=== PATIENT | male | born 1955 | race Caucasian/White ===

== ENCOUNTER 2017-10-29 07:41 | Observation (INO) ==
[2017-10-29] MEDS ORDERED: SALINE FLUSH 10ml SYRINGE IVF PRN (07:59)
[2017-10-29] MEDS ORDERED: ASPIRIN 81 MG CHEWABLE TABLET PO ONE (07:59)
--- OUTSIDE RECORDS SUMMARY | 2017-10-29 08:01 | External Medical Summary ---
:1955 Author Organization [facility] Address [address] [place] [address] Care Team Providers Name Role Phone Margarette Brown Unavailable Unavailable PROBLEMS Type Condition ICD9-CM Code [id number] Onset Condition SNOMED Code Code Dates Status Assessment Acute upper J06.9 May, Active 777587272 respiratory 2016 infection, unspecified Assessment Other viral B97.89 May, Active [id number] agents as the 2016 cause of diseases classified elsewhere ALLERGIES Substance Reaction Event Type Date Status Sulfa Unknown Non Drug Allergy May, Active SOCIAL HISTORY No smoking Hx information available PLAN OF CARE VITAL SIGNS Weight 198.6 lbs 2016-06-10 Height 69.25 in 2016-06-10 Temperature 98.7 degrees Fahrenheit 2016-06-10 BMI 29.11 kg/m2 2016-06-10 Heart Rate 77 /min 2016-06-10 Oximetry 97 % 2016-06-10 Blood pressure systolic 138 mm Hg 2016-06-10 Blood pressure diastolic 80 mm Hg 2016-06-10 MEDICATIONS Medication Instructions Dosage Frequency Start Date End Date Duration Status Ibuprofen Active Vitamin C 1000 Orally Once a day 1 tablet 24h Active MG RESULTS No Results PROCEDURES Procedure Date Ordered Related Diagnosis Body Site OFFICE VISIT, AGRONOMY SPECIALIST-LOW COMPLEXITY (30 MIN.) Jun 10, 2016 IMMUNIZATIONS No Known Immunizations
--- NOTE | 2017-10-29 08:04 | Emergency Department Report ---
Chest Pain HPI - General Chief Complaint: Chest Pain Stated Complaint: Chest discomfort, high bp Time Seen by Provider: 10/29/17 07:54 Source: patient, RN notes reviewed, old records reviewed Mode of arrival: ambulatory Limitations: no limitations - History of Present Illness HPI narrative: 62yo man presents to the ER this AM for evaluation of chest pressure. Pts sx began appx 1.25 hours ago, while at work. This was accompanied by an elevation in BP. Pt took an 81mg ASA at work; he refused the offered EMS transport to the ER. His CP was intermittent; after enduring for appx 1 hour, he decided to present for evaluation. Shortly before arriving in the ER, pts sx resolved spontaneously. Pt is now CP free. He has never had anything like this before. Has no prior cardiac hx. MD complaint: chest pain Occurred At: work Onset (ago): hour(s) Duration: intermittent, now resolved Onset: during exertion Pain location: substernal Severity: moderate Severity scale (1-10): 6 Quality: heaviness (Pressure) Pain radiation: none Relieving factors: nothing Exacerbating factors: exertion Aspirin Today: 81 mg x 1, 81 mg x 3, provided by ED, provided at home Treatments prior to arrival chest pain: aspirin - Related Data Home Medications Medication Instructions Recorded Confirmed No known Home medications [No home 10/29/17 10/29/17 meds] Allergies Allergy/AdvReac Type Severity Reaction Status Date / Time Sulfa (Sulfonamide AdvReac Unknown STOMACH Verified 10/29/17 07:47 Antibiotics) UPSET Review of Systems All systems: reviewed and negative except as stated Cardiovascular: Reports: as per HPI, chest pain. Denies: palpitations, dyspnea on exertion, orthopnea, edema, syncope, paroxysmal nocturnal dyspnea [facility] Patient Stated Medical History Other HEENT Yes: wears glasses Hypertension Yes Bronchitis Yes Other Respiratory Yes: seasonal allergies Medical History Updates: HTN. LBP - Social History Smoking status: Former smoker Physical Exam - Limitations Limitations: no limitations - General General appearance: alert, in no apparent distress, obese - Normal Exams: Head:: Normocephalic without trauma Eyes:: Pupils are PERRLA w/ EOMI, No scleral icterus, irritation, or foreign bodies noted ENMT:: No facial trauma, nasal exudates, pharyngeal erythema, or exudates are noted Neck:: Full range of motion, without adenopathy Lymphatic:: No lymphadenopathy Musculoskeletal:: No tenderness, or deformity noted Integumentary:: No rashes, hives, or bruising noted Neurological:: Patient is alert, and oriented Psychiatric:: Patient exhibits, appropriate attention - Chest Chest inspection: Present: normal inspection, symmetric chest wall rise. Absent : tenderness, rash - Respiratory Respiratory exam: Present: normal lung sounds bilaterally. Absent: respiratory distress, wheezes, stridor, prolonged expiratory phase, crackles - Cardiovascular Cardiovascular exam: Present: regular rate, normal rhythm, normal heart sounds. Absent: rubs, gallop, clicks - Abdominal Exam Abdominal exam: Present: soft, normal bowel sounds. Absent: distention, tenderness, guarding, rebound, rigidity Course - Consultations Consultation #1: Hospitalist: Dr. Suresh has agreed to admit pt obs for CP r/o. Time: 08:51 Vital Signs Temperature 98.3 F 10/29/17 07:47 Pulse Rate 63 10/29/17 07:47 Respiratory Rate 20 10/29/17 07:47 Blood Pressure 179/91 H 10/29/17 07:47 Pulse Oximetry 94 10/29/17 07:47 Temperature 98.3 F 10/29/17 07:47 Pulse Rate 54 L 10/29/17 09:15 Respiratory Rate 19 10/29/17 09:15 Blood Pressure 157/92 H 10/29/17 09:15 Pulse Oximetry 94 10/29/17 09:15 Chest Pain - MDM Narrative Medical decision making narrative: CBC - n BMP - mild dehydration Trop - n BNP - n 62yo man with no prior cardiac hx, presenting 1 hour after abrupt onset of substernal chest pressure, relieved with rest and 81mg ASA. It is otherwise difficult to obtain hx from pt. Given h/o untreated HTN, former smoking status, and age, will contact hospitalist for CP r/o. - Differential Diagnosis Likely: fracture of rib, pneumothorax, stable angina, unstable angina pectoris, atypical chest pain, st elevation myocardial infarction, costochondritis, chest pain - Medical Records Data Attestation: I reviewed the patient's medical records. - Lab Data Attestation: I reviewed the patient's lab results. Result diagrams: 10/29/17 08:00 10/29/17 08:00 Lab Results 05/02/18 05/02/18 Range/Units 08:00 08:00 WBC 6.9 (4.5-11.0) T/MM3 RBC 4.80 (4.50-5.90) M/MM3 Hgb 14.9 (13.5-17.5) GM/DL Hct 45.5 (41-53) % MCV 94.8 (80-100) UM3 MCH 31.0 (26-34) UUG MCHC 32.7 (31-37) GM/DL RDW Std Deviation 45.5 (36.9-50.2) FL Plt Count 263 (130-400) T/MM3 MPV 10.2 (9.4-12.4) UM3 Immature Gran % (Auto) 0.1 (0.0-0.5) % Neut % (Auto) 58.0 (33-66) % Lymph % (Auto) 29.5 (23-45) % [place] % (Auto) 6.9 (0-9.0) % Eos % (Auto) 4.6 H (0-4) % Baso % (Auto) 0.9 (0-2) % Neut # (Auto) 4.0 (1.8-7.7) T/MM3 Lymph # (Auto) 2.1 (1-4.8) T/MM3 [place] # (Auto) 0.5 (0-0.8) T/MM3 Eos # (Auto) 0.3 (0-0.5) T/MM3 Baso # (Auto) 0.1 (0-0.2) T/MM3 Abs Immat Gran (auto) 0.01 (0.00-0.03) T/MM3 Turbidity < 20 (0-20) Sodium 148 H (134-144) MEQ/L Potassium 4.2 (3.6-5) MEQ/L Chloride 110 H (98-107) MEQ/L Carbon Dioxide 25 (22-30) MEQ/L Anion Gap 13 (5-15) meq/L BUN 16.0 (9-20) MG/DL Creatinine 0.8 (0.8-1.5) mg/dL GFR Calculation 99 BUN/Creatinine Ratio 20 (6-26) RATIO Glucose 96 (75-110) MG/DL Calculated Osmolality 285 H (261-280) MOSM/KG Calcium 9.6 (8.4-10.2) MG/DL Icterus Index < 2 (0-7) Troponin I < 0.012 (0-0.12) ng/ml NT-Pro-B Natriuret Pep 58.3 (0-175) pg/mL Specimen Hemolysis < 15 (0-25) - Radiology Data Attestation: I reviewed the patient's radiology results. CXR: IMPRESSION: No acute cardiopulmonary abnormality. - EKG Data EKG #1 EKG attestation: Yes: I reviewed and interpreted this EKG. EKG shows normal: sinus rhythm, axis, intervals, QRS complexes, ST-T waves Rate: normal Interpretation: normal EKG Disposition Clinical Impression: Chest pain Qualifiers: Chest pain type: unspecified Qualified Code(s): R07.9 - Chest pain, unspecified Disposition: [address] [facility] Print Language: Kitt[place] Condition: Improved Prescriptions: No Action No known Home medications [No home meds] 0 [facility] Referrals: Chandu Cabello II, MD [Primary Care Provider] - Janak Hernández MD [Physician] - Time of Disposition: 09:21 - Seen By: physician
--- NOTE | 2017-10-29 08:48 | XRay Report ---
Indication: Chest pain this morning PROCEDURE: XR chest 1V: Encounter: Initial Comparison: January 15, 2016 FINDINGS: The lungs are clear. There is no abnormal airspace opacity, pleural effusion or pneumothorax identified. The heart size, pulmonary vasculature and mediastinum are within normal limits. No significant skeletal abnormality is seen. IMPRESSION: No acute cardiopulmonary abnormality. .
--- NOTE | 2017-10-29 09:54 | History & Physical Report ---
History of Present Illness Date: 10/29/17 Chief complaint: chest pressure HPI: Del Jung is a 62 y/o male who developed midsternal chest pain while at work. 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 His BP was 167/104 - much higher than it's ever been. He was not doing anything exertional. The pressure was consistent and mild. He was diaphoretic but with the humidity it was expected. He had mild nausea at this time but there was no radiation of pain, SOA, lightheadedness or dizziness. No recent leg swelling. He's also had recent URI symptoms, and has severe allergies. He had a nausea and vomiting about 2 weeks ago, with occasional diarrhea. While the GI symptoms have resolved, his appetite hasn't quite returned to normal. He denies GERD. His stated that sometimes he chokes when he eats. He has chronic back pain, but otherwise ROS was negative. At [employer], he took an ASA and drove himself to the ED. By time of arrival, his CP resolved. Labs, including troponin, were negative with exception of Na of 148. EKG showed sinus without ST elevation/depression. CXR was negative. Given his concerning angina- like symptoms, Dr. Suresh was contacted and Del was admitted to observation status. Review of Systems All systems PM: 10-point ROS was reviewed, no additional remarkable complaints except - Constitutional Constitutional: Absent: chills, fever(s) - EENMT Eyes: Present: requires corrective lenses. Absent: blurry vision, change in vision Balance: Absent: vertigo Nose: Present: allergies Mouth/Throat: Present: as per HPI - Cardiovascular Cardiovascular: Present: as per HPI Vascular: Present: see HPI - Respiratory Respiratory: Present: as per HPI - Gastrointestinal Gastrointestinal: Present: as per HPI - Genitourinary Genitourinary: Absent: dysuria - Musculoskeletal Musculoskeletal: Present: as per HPI - Integumentary/Breasts Integumentary: Present: wounds (healing abrasion to right wrist). Absent: rash - Neurological Neurological: Absent: confusion, dizziness, headache(s), numbness, paresthesias , weakness - Psychiatric Psychiatric: Absent: anxiety - Hematologic/Lymphatic Hematologic/Lymphatic: Absent: lymphadenopathy - Allergic/Immunologic Allergic/Immunologic: Present: seasonal rhinorrhea Past Medical History Medical History Updates: Low back pain. Obesity, BMI 30.9 Surgical History: Back surgery. Sinus surgery. Vasectomy Family History Updates: Mother had a few strokes and OA. She around age 80. Father had a stomach ulcer and intestinal blockage. He in his 80s. He has siblings but doesn't know medical history. Family History: As Above - Social History Smoking status: Former smoker (quit smoking) Packs per day: 1.5 Packs-years: 20 Substance use type: does not use Alcohol intake frequency: holidays/special occasions only Housing: house Household members: spouse Current occupational status: employed Current occupation: PEDICURIST Social history: PCP: Dr. Cabello Medications Home Medications Medication Instructions Recorded Confirmed Type No known Home medications [No home 10/29/17 10/29/17 History meds] Allergies Allergy/AdvReac Type Severity Reaction Status Date / Time Sulfa (Sulfonamide AdvReac Unknown STOMACH Verified 10/29/17 07:47 Antibiotics) UPSET Exam Vital Signs: Temperature 98.3 F 10/29/17 07:47 Pulse Rate 54 L 10/29/17 09:15 Respiratory Rate 19 10/29/17 09:15 Blood Pressure 157/92 H 10/29/17 09:15 Pulse Oximetry 94 10/29/17 09:15 Height/Weight/BMI: Height 1.73 m Weight 92.3 kg - Constitutional Present: no acute distress, well nourished, well developed - Routine HEENT Exam Head: Present: normocephalic Eye: Present: PERRL. Absent: conjunctival icterus, scleral injection ENT: Present: mucous membranes moist, oropharynx clear - Routine Neck Exam Present: supple. Absent: lymphadenopathy - Routine Respiratory Exam Present: CTA bilaterally - Routine Cardiovascular Exam Present: RRR, S1, S2 - Routine Abdominal Exam Present: normoactive bowel sounds, non distended, non tender - Routine Extremities Exam Present: no edema, pulses intact - Routine Skin Exam Present: intact, dry, warm - Routine Neurological Exam Present: alert, oriented X3, CN II-XII intact, moving all extremities, vision grossly intact, hearing grossly intact, normal speech. Absent: sensory deficit , motor deficit, altered mental status, facial asymmetry - Routine Psychiatric Exam Present: normal affect, normal thought process, cooperative Results - Labs CBC & Chem 7: 10/29/17 08:00 05/02/18 08:00 - ECG Data Tracing #1 I reviewed this ECG and interpreted as documented below: NSR, no ST elevation/depression Normal axis poor R-wave progression - Imaging and Cardiology Chest x-ray Status: image reviewed by me Additional comments: No acute abnormality Assessment and Plan (1) Chest pain Current visit: Yes Status: Acute Assessment and Plan: Assessment Chest pain, resolved Elevated BP Low back pain Obesity, BMI 30.9 Former smoker Plan Admit, observation status. PCP: Dr. Cabello. Chest pain: serial trop, tele, lipid panel. Start atorvastatin HS and daily ASA. Elevated BP: start Lisinopril 5 mg daily (HR too low to start BB). Likely will need further outpatient cardiac eval; could consider cardiac consultation. Advanced directives: Will provide DPOA and Living Will forms and assist in completing these documents. Full code. DVT Prophylaxis: SCD's Resuscitation Status: Full Code - Physician Narrative Physician: Stefany Love MD Narrative: Date: 10/29/17 Time: 1447 Mr. Jung was independently interviewed and examined by me. He was resting comfortably sitting upright in the bed. Family is at bedside. He denies any chest pain, pressure or tightness. He described the discomfort that he had as a pressure in the midst sternal area without radiation to the back, neck, jaw or arms. He denies feeling short of breath. He states he was a little sweaty and clammy but that that's not unusual as the place he was working is warm. 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 Otherwise he's been well. He denies fevers or chills. He denies cold or flu like symptoms. He has severe seasonal allergies. He has chronic back pain. He denies any previous history of chest discomfort. He denies any previous heart history. He did take an aspirin at work and by the time he arrived at the emergency room his pain had resolved. Troponin's are negative times 2 so far. PE: Gen: alert and oriented. NAD Skin: warm and dry HEENT: NC/AT PERRL, EOMI, Sclera, lids and conjunctiva wnl, MMM, OP clear Neck: supple. No JVD, Carotids 2+ without bruits. Lungs: clear, No rales, rhonchi, wheezes. CV: regular. No murmur, rub or gallop Abd: soft. NT/ND, +BS MS: No edema. Good strength and ROM. Neuro: No focal deficit Psy: normal mood and affect A/P: Chest pain, resolved -Serial troponins -TTE -MPS if Troponin neg -Lipitor initiated, ASA initiated -Check lipid level Elevated BP -Lisinopril initiated as opposed to BBL due to bradycardia -Low back pain -Obesity, BMI 30.9 -Former smoker DVT Prophylaxis: SCD's Resuscitation Status: Full Code Hospital Course Summary Disclaimer: The visit summary below is not to be considered part of the above Progress Note. Hospital Course: 10/29/17 Admit, observation status, for chest pain r/o. PCP: Dr. Cabello. Chest pain: serial trop, tele, lipid panel. Start atorvastatin HS and daily ASA. Elevated BP: start Lisinopril 5 mg daily (HR too low to start BB). Likely will need further outpatient cardiac eval; could consider cardiac consultation. Advanced directives: Will provide DPOA and Living Will forms and assist in completing these documents. Full code.
[2017-10-29 09:58] VITALS: BMI 30.9
[2017-10-29] MEDS ORDERED: ONDANSETRON 4 MG/2 ML INJECTION IVP PRN (10:01)
[2017-10-29] MEDS ORDERED: NITROGLYCERIN 0.4 MG SUBLINGUAL TABLET SL PRN (10:01)
[2017-10-29] MEDS: LISINOPRIL 5 MG TABLET PO SCH (12:04)
[2017-10-29] MEDS ORDERED: ATORVASTATIN 20 MG TABLET PO SCH (21:00)
[2017-10-29 23:31] VITALS: O2SAT 95
[2017-10-30 07:40] VITALS: BP 159/98; RESP 18; TEMP 97.1
[2017-10-30] MEDS ORDERED: ASPIRIN *EC* 81 MG TABLET PO SCH (09:00)
[2017-10-30 09:10] VITALS: PULSE 73
--- NOTE | 2017-10-30 10:28 | Cardiology Consult Note ---
History of Present Illness Consult date: 10/30/17 Requesting physician: Stefany Love Consult reason: chest pain Chief complaint: chest pain History of present illness: Del is a 62 year old male who developed midsternal chest pain while at work. 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 His BP was 167/104 - much higher than it's ever been. He was not doing anything exertional. The pressure was consistent and mild. He was diaphoretic but with the humidity it was expected. He had mild nausea at this time but there was no radiation of pain, SOA, lightheadedness or dizziness. No recent leg swelling. He 's also had recent URI symptoms, and has severe allergies. He had a nausea and vomiting about 2 weeks ago, with occasional diarrhea. While the GI symptoms have resolved, his appetite hasn't quite returned to normal. He denies GERD. His stated that sometimes he chokes when he eats. He has chronic back pain , but otherwise ROS was negative. At [employer], he took an ASA and drove himself to the ED. By time of arrival, his CP resolved. Labs, including troponin , were negative with exception of Na of 148. EKG showed sinus without ST elevation/depression. CXR was negative. Given his concerning angina-like symptoms, Dr. Suresh was contacted and Del was admitted to observation status. Review of Systems - Constitutional Constitutional: Absent: chills, fatigue, fever(s) - EENMT Eyes: Absent: change in vision Balance: Absent: vertigo Mouth/Throat: Absent: sore throat - Cardiovascular Cardiovascular: Present: chest pain. Absent: palpitations, syncope, dyspnea on exertion, orthopnea, edema, heart murmur Rhythm: Absent: abnormal rhythm Vascular: Absent: pedal edema - Respiratory Respiratory: Absent: cough, dyspnea, dyspnea on exertion - Gastrointestinal Gastrointestinal: Present: nausea. Absent: constipation, diarrhea, vomiting - Genitourinary Genitourinary: Absent: dysuria - Integumentary/Breasts Integumentary: Absent: rash - Neurological Neurological: Absent: dizziness - Endocrine Endocrine: Absent: palpitations PFSH Patient Stated Medical History Other HEENT Yes: wears glasses Hypertension Yes Bronchitis Yes Pneumonia Yes: 5 times in life Other Respiratory Yes: seasonal allergies Gastroesophageal Reflux Yes Disease Hx Urinary Tract Infection Yes: past Other Musculoskeletal Yes: hritis Medical History Updates: Low back pain. Obesity, BMI 30.9 Surgical History: Back surgery. Sinus surgery. Vasectomy Family History Updates: Mother had a few strokes and OA. She around age 80. Father had a stomach ulcer and intestinal blockage. He in his 80s. He has siblings but doesn't know medical history. 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 Medications Home Medications Medication Instructions Recorded Confirmed Type Aspirin *EC* [Ecotrin] 81 mg PO DAILY tab 10/30/17 Rx Atorvastatin [Lipitor] 20 mg PO HS #30 tab 10/30/17 Rx Lisinopril [Prinivil] 10 mg PO DAILY #30 tab 10/30/17 Rx Nitroglycerin [Nitrostat] 0.4 mg SL Q5M PRN #25 tab 10/30/17 Rx Allergies Allergy/AdvReac Type Severity Reaction Status Date / Time Sulfa (Sulfonamide AdvReac Unknown STOMACH Verified 10/29/17 07:47 Antibiotics) UPSET Exam Vital signs: Temperature 97.1 F 10/30/17 07:38 Pulse Rate 73 10/30/17 08:00 Respiratory Rate 18 10/30/17 07:38 Blood Pressure 159/98 H 10/30/17 07:38 Pulse Oximetry 95 10/30/17 07:38 - Constitutional no acute distress, well nourished, cooperative - Routine HEENT Exam Head: Present: normocephalic ENT: Present: mucous membranes moist - Routine Neck Exam Absent: JVD, carotid bruit - Routine Chest/Breast/Axilla Exam Chest wall: Absent: tenderness - Routine Respiratory Exam Present: CTA bilaterally. Absent: dyspnea, rales, wheezes - Routine Cardiovascular Exam Present: RRR. Absent: no murmur - Routine Abdominal Exam Present: soft, non tender - Routine Extremities Exam Present: no edema - Routine Skin Exam Present: intact, dry, warm - Routine Neurological Exam Present: alert, oriented X3 - Routine Psychiatric Exam Present: normal affect, normal thought process Results 10/29/17 08:00 10/29/17 08:00 Cardiac Enzymes 10/29/17 10/29/17 10/30/17 Range/Units 14:07 19:53 02:24 Troponin I < 0.012 < 0.012 < 0.012 (0-0.12) ng/ml Intake and Output 10/29/17 10/30/17 10/30/17 22:59 06:59 14:59 Intake Total 400 / 400 Balance 400 / 400 Intake: Oral 400 / 400 Other: # Voids 3 Weight 200 lb 9.93 oz Patient Weight 10/31/17 06:59 Weight 200 lb 9.93 oz - Imaging and Cardiology Imaging & Cardiology Narrative: Date of Exam: 10/29/17 Type of Exam(s): US echo doppler complete DATE OF PROCEDURE November 02, [address] Hosea Suresh This is a two-dimensional echo with spectral Doppler, color-flow and M-mode. It was obtained in a patient with chest pain. Left atrial dimension is normal. Left ventricular end-diastolic dimension is normal. Left ventricle wall thickness is mildly increased. LV systolic function is normal with ejection fraction of 58%. Right atrium is normal. Right ventricle is normal. Aortic root dimension is normal. Mitral valve is morphologically normal with mild mitral regurgitation. Aortic valve is a trileaflet structure with no stenosis or insufficiency. Tricuspid valve shows [id number] tricuspid regurgitation with moderate pulmonary hypertension with estimated pulmonary artery systolic pressure of 44. Pulmonary valve shows no pulmonary insufficiency. There is no pericardial effusion. IMPRESSION 1. Normal LV systolic function with ejection fraction of 58%. 2. Mild left ventricular hypertrophy. 3. Mild mitral regurgitation. 4. [id number] tricuspid regurgitation with moderate pulmonary hypertension with estimated pulmonary artery systolic pressure of 44. 10/31/17 16:19 10/31/17 16:19 Date of Exam: 10/29/17 Ordering Provider: Arturo Perrin DO Type of Exam(s): XR chest 1V Reason for Exam(s): CP Indication: Chest pain this morning PROCEDURE: XR chest 1V: Encounter: Initial Comparison: January 15, 2016 FINDINGS: The lungs are clear. There is no abnormal airspace opacity, pleural effusion or pneumothorax identified. The heart size, pulmonary vasculature and mediastinum are within normal limits. No significant skeletal abnormality is seen. IMPRESSION: No acute cardiopulmonary abnormality. . EKG interpretations - EKG EKG results cardiology: WNL, sinus rhythm Assessment and Plan - Assessment and Plan (1) Chest pain Status: Acute sub sternal chest pain, associated with nausea, no radiation or other associated factors - Serial troponin negative - EKG: SR WNL - Scheduled for outpatient stress test in 2 weeks with follow up with Dr. Letha DARLING Nitro RX given per attending - Aspirin 81mg daily (2) HTN (hypertension) Status: Acute Started on Lisinopril 10mg daily per attending - Recommend taking and recording BP 2-3 times a week and bringing written diary to follow up (3) HLD (hyperlipidemia) Status: Acute Started on Atorvastatin 20mg per attending - Recommend follow up LFTs in 2 weeks, Lipids and LFTs in 8 weeks. - Assessment and Plan Chest pain: sub sternal chest pain, associated with nausea, no radiation or other associated factors - Serial troponin negative - EKG: SR WNL - Scheduled for outpatient stress test in 2 weeks with follow up with Dr. Letha DARLING Nitro RX given per attending - Aspirin 81mg daily HTN: Started on Lisinopril 10mg daily per attending - Recommend taking and recording BP 2-3 times a week and bringing written diary to follow up HLD: Started on Atorvastatin 20mg per attending - Recommend follow up LFTs in 2 weeks, Lipids and LFTs in 8 weeks. Thank you for allowing us to participate in the care of this patient. Hospital Course Summary Disclaimer: The visit summary below is not to be considered part of the above Progress Note. Hospital Course: 10/29/17 Admit, observation status, for chest pain r/o. PCP: Dr. Cabello. Chest pain: serial trop, tele, lipid panel. Start atorvastatin HS and daily ASA. Elevated BP: start Lisinopril 5 mg daily (HR too low to start BB). Likely will need further outpatient cardiac eval; could consider cardiac consultation. Advanced directives: Will provide DPOA and Living Will forms and assist in completing these documents. Full code.
[2017-10-30] MEDS: LISINOPRIL 5 MG TABLET PO SCH (11:00)
--- NOTE | 2017-10-30 12:21 | Discharge Summary ---
Discharge Information Date of admission: 10/29/17 09:13 Anticipated date of discharge: 10/30/17 Attending Physician: Stefany Love MD Primary care physician: Chandu Cabello II, MD Consults: 10/30/17 08:53 Physician Consult [CONS] Routine Consulting Provider: Pipe Monae Reason For Exam: chest pain Ordering Provider has Notified Orthopaedic Technologist: Yes Comment: i've contacted francine - Discharge Diagnosis (1) Chest pain Status: Acute Chest pain - Laboratory Labs: Laboratory Results - last 24 hr 10/29/17 10/29/17 10/30/17 14:07 19:53 02:24 Troponin I < 0.012 < 0.012 < 0.012 Specimen Hemolysis < 15 < 15 < 15 Laboratory Results - last 48 hr 10/29/17 10/29/17 10/29/17 08:00 08:00 08:00 WBC 6.9 RBC 4.80 Hgb 14.9 Hct 45.5 MCV 94.8 MCH 31.0 MCHC 32.7 RDW Std Deviation 45.5 Plt Count 263 MPV 10.2 Immature Gran % (Auto) 0.1 Neut % (Auto) 58.0 Lymph % (Auto) 29.5 Burnet % (Auto) 6.9 Eos % (Auto) 4.6 H Baso % (Auto) 0.9 Neut # (Auto) 4.0 Lymph # (Auto) 2.1 [place]et # (Auto) 0.5 Eos # (Auto) 0.3 Baso # (Auto) 0.1 Abs Immat Gran (auto) 0.01 Turbidity < 20 Sodium 148 H Potassium 4.2 Chloride 110 H Carbon Dioxide 25 Anion Gap 13 BUN 16.0 Creatinine 0.8 GFR Calculation 99 BUN/Creatinine Ratio 20 Glucose 96 Calculated Osmolality 285 H Calcium 9.6 Icterus Index < 2 Troponin I < 0.012 NT-Pro-B Natriuret Pep 58.3 Triglycerides 112 Cholesterol 177 LDL Cholesterol, Calc 104.6 VLDL Cholesterol 22.4 HDL Cholesterol 50 Cholesterol/HDL Ratio 3.5 Specimen Hemolysis < 15 10/29/17 10/29/17 10/30/17 14:07 19:53 02:24 WBC RBC Hgb Hct MCV MCH MCHC RDW Std Deviation Plt Count MPV Immature Gran % (Auto) Neut % (Auto) Lymph % (Auto) Burnet % (Auto) Eos % (Auto) Baso % (Auto) Neut # (Auto) Lymph # (Auto) Burnet # (Auto) Eos # (Auto) Baso # (Auto) Abs Immat Gran (auto) Turbidity Sodium Potassium Chloride Carbon Dioxide Anion Gap BUN Creatinine GFR Calculation BUN/Creatinine Ratio Glucose Calculated Osmolality Calcium Icterus Index Troponin I < 0.012 < 0.012 < 0.012 NT-Pro-B Natriuret Pep Triglycerides Cholesterol LDL Cholesterol, Calc VLDL Cholesterol HDL Cholesterol Cholesterol/HDL Ratio Specimen Hemolysis < 15 < 15 < 15 - Radiology Radiology: Transthoracic Echocardiogram 10/29/17 Official report pending. To my view, normal systolic function. Mild concentric LVH. RV normal in size and function. No significant VHD. CXR 10/29/17 IMPRESSION: No acute cardiopulmonary abnormality. History of Present Illness HPI: Del Jung is a 62 y/o male who developed midsternal chest pain while at work. 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 His BP was 167/104 - much higher than it's ever been. He was not doing anything exertional. The pressure was consistent and mild. He was diaphoretic but with the humidity it was expected. He had mild nausea at this time but there was no radiation of pain, SOA, lightheadedness or dizziness. No recent leg swelling. He's also had recent URI symptoms, and has severe allergies. He had a nausea and vomiting about 2 weeks ago, with occasional diarrhea. While the GI symptoms have resolved, his appetite hasn't quite returned to normal. He denies GERD. His stated that sometimes he chokes when he eats. He has chronic back pain, but otherwise ROS was negative. At [employer], he took an ASA and drove himself to the ED. By time of arrival, his CP resolved. Labs, including troponin, were negative with exception of Na of 148. EKG showed sinus without ST elevation/depression. CXR was negative. Given his concerning angina- like symptoms, Dr. Suresh was contacted and Del was admitted to observation status. Objective Vital signs: Temperature 97.1 F 10/30/17 07:38 Pulse Rate 73 10/30/17 08:00 Respiratory Rate 18 10/30/17 07:38 Blood Pressure 159/98 H 10/30/17 07:38 Pulse Oximetry 95 10/30/17 07:38 Height/Weight/BMI: Height 1.73 m Weight 91 kg Body Mass Index 30.9 Comments: Gen: alert and oriented. NAD Skin: warm and dry HEENT: NC/AT PERRL, EOMI, Sclera, lids and conjunctiva wnl, MMM, OP clear Neck: supple. No JVD, Carotids 2+ without bruits. Lungs: clear, No rales, rhonchi, wheezes. CV: regular. No murmur, rub or gallop Abd: soft. NT/ND, +BS MS: No edema. Good strength and ROM. Neuro: No focal deficit Psy: normal mood and affect Hospital Course This is a general summary of the patient's hospital course. For more details refer to the complete medical record. Hospital course: The patient was admitted to rule out acute coronary syndrome. He had negative troponin's times 3. He had no recurrence of his chest discomfort. He underwent a transthoracic echocardiogram which showed normal ejection fraction and wall motion. We were unable to get an inpatient stress test so Dr. Ken youngblood was consultative and recommended a stress test as an outpatient to be done in [place] due to the delay of getting one locally. The patient was advised to be compliant with his medications and to continue to watch his blood pressures closely. The patient was feeling well on the day of discharge. He was up and ambulating with no difficulties. He was felt to be stable for discharge. Time spent with patient: 25 - 35 minutes Resuscitation Status: Full Code Discharge Plan - Discharge Disposition Discharge Date: 10/30/17 Disposition: Discharged Home, Self-Care *Condition: Improved Reason For Visit (Visit label in EMR): Chest Pain - Discharge Medications *Discharge Medications: New Lisinopril [Prinivil] 10 mg PO DAILY #30 tab Nitroglycerin [Nitrostat] 0.4 mg SL Q5M PRN #25 tab PRN Reason: Chest Pain Aspirin *EC* [Ecotrin] 81 mg PO DAILY tablet Atorvastatin [Lipitor] 20 mg PO HS #30 tab - Discharge Packet/Instructions *Diet: Heart healthy *Activity: As tolerated *Pain Management/Treatment: CP with SL NTG *Wound Care: N/A *Expected Signs/Symptoms: If recurrent CP, proceed to ED *Notify Physician if: CP, elevated SBP > 140 consistently *During Business Hours Contact: PCP or proceed to ED *After Business Hours Contact: MD migration specialist for PCP or preceed to ED - Referrals/Follow Up *Referrals/Follow Up: Chandu Cabello II, MD [Primary Care Provider] - 1 Week Pipe Monae MD [Physician] - (Pt has appt for a stress test and consult with Dr. Monae in the next two weeks. ) - Patient Handouts - Dismissal Complete Discharge Instructions are:: Complete Physician Narrative - Narrative Attestation Narrative: Date: 10/30/17 Time: [id number]
--- NOTE | 2017-10-30 12:52 | Work/School Release ---
Work/School Release - Date Date: 10/30/17 - Work Release Excused for:: 10/29/17 through 11/02/17 May return to work on:: FridayNovember 03 without restrictions. Restrictions:: None May resume normal activity on:: 11/03/17
--- NOTE | 2017-10-31 07:07 | Echocardiogram ---
DATE OF PROCEDURE November 02, [address] Hosea Suresh This is a two-dimensional echo with spectral Doppler, color-flow and M-mode. It was obtained in a patient with chest pain. Left atrial dimension is normal. Left ventricular end-diastolic dimension is normal. Left ventricle wall thickness is mildly increased. LV systolic function is normal with ejection fraction of 58%. Right atrium is normal. Right ventricle is normal. Aortic root dimension is normal. Mitral valve is morphologically normal with mild mitral regurgitation. Aortic valve is a trileaflet structure with no stenosis or insufficiency. Tricuspid valve shows [id number] tricuspid regurgitation with moderate pulmonary hypertension with estimated pulmonary artery systolic pressure of 44. Pulmonary valve shows no pulmonary insufficiency. There is no pericardial effusion. IMPRESSION 1. Normal LV systolic function with ejection fraction of 58%. 2. Mild left ventricular hypertrophy. 3. Mild mitral regurgitation. 4. [id number] tricuspid regurgitation with moderate pulmonary hypertension with estimated pulmonary artery systolic pressure of 44. MTDD
[2017-10-31] MEDS ORDERED: LISINOPRIL 10 MG TABLET PO SCH (09:00)
== END 2017-10-30 13:40 | disposition home or self-care (01) ==
LOC: ED 07:41 → MED 07:41 → SUATTDRO 09:13 → MED 09:49
PROVIDERS: ADMIT Hospitalist; ATTEND Internal Medicine Cardiovascular Disease